=== PATIENT | female | born 1965 | race Caucasian/White ===

== ENCOUNTER → 2020-08-23 10:59 | Outpatient (CLI) | payer OTHER, SELFPAY ==
--- NOTE | 2020-08-23 | DI.MG.S_ITS ---
BILATERAL DIGITAL SCREENING MAMMOGRAM 3D/2D WITH CAD: 08/23/2020 CLINICAL: Routine screening. Family history of breast cancer. Comparison is made to exams dated: 08/11/2019 mammogram, 07/30/2018 mammogram, and 07/26/2017 mammogram - [facility]. There are scattered fibroglandular elements in both breasts. Current study was also evaluated with a Computer Aided Detection (CAD) system. No significant masses, calcifications, or other findings are seen in either breast. There has been no significant interval change. IMPRESSION: NEGATIVE There is no mammographic evidence of malignancy. A 1 year screening mammogram is recommended. This exam was interpreted at Station ID: [id number]. NOTE: For mammograms, a report in lay terms will be sent to the patient. Approximately 15% of breast malignancies will not be visualized mammographically. In the management of a palpable breast mass, a negative mammogram must not discourage biopsy of a clinically suspicious lesion. Electronically Signed By: Augusto camilo/rfancisco:08/23/2020 11:57:38 letter sent: Normal Exam ACR BI-RADS Category 1: Negative 3341F
== END ==
PROVIDERS: PCP Student in an Organized Health Care Education/Training Program; Referring Provider Student in an Organized Health Care Education/Training Program; Visit Provider Student in an Organized Health Care Education/Training Program
DX: Z12.31 Encounter for screening mammogram for malignant neoplasm of breast (principal); Z80.3 Family history of malignant neoplasm of breast
CPT/HCPCS: 77063; 77067

== ENCOUNTER → 2021-08-31 16:22 | Outpatient (CLI) | payer OTHER, SELFPAY ==
--- NOTE | 2021-08-31 | DI.MG.S_ITS ---
BILATERAL DIGITAL SCREENING MAMMOGRAM 3D/2D WITH CAD: 08/31/2021 CLINICAL: Routine screening. Family history of breast cancer. Comparison is made to exams dated: 08/11/2019 mammogram, 07/30/2018 mammogram - [facility], and 08/23/2020 mammogram - [facility]. There are scattered fibroglandular elements in both breasts. Current study was also evaluated with a Computer Aided Detection (CAD) system. No significant masses, calcifications, or other findings are seen in either breast. There has been no significant interval change. IMPRESSION: NEGATIVE There is no mammographic evidence of malignancy. A 1 year screening mammogram is recommended. This exam was interpreted at Station ID: [id number]. NOTE: For mammograms, a report in lay terms will be sent to the patient. Approximately 15% of breast malignancies will not be visualized mammographically. In the management of a palpable breast mass, a negative mammogram must not discourage biopsy of a clinically suspicious lesion. Electronically Signed By: Augusto camilo/francisco:09/01/2021 10:09:05 letter sent: Normal Exam ACR BI-RADS Category 1: Negative 3341F
== END ==
PROVIDERS: PCP Student in an Organized Health Care Education/Training Program; Referring Provider Student in an Organized Health Care Education/Training Program; Visit Provider Student in an Organized Health Care Education/Training Program
DX: Z12.31 Encounter for screening mammogram for malignant neoplasm of breast (principal); Z80.3 Family history of malignant neoplasm of breast
CPT/HCPCS: 77063; 77067

== ENCOUNTER → 2022-06-25 10:29 | Outpatient (CLI) | payer OTHER, SELFPAY ==
[2022-06-25 12:10] LABS: COVID19 -Nasal RAPID Negative (Negative)
== END ==
PROVIDERS: PCP Student in an Organized Health Care Education/Training Program; Visit Provider Surgery
DX: Z20.822 Contact with and (suspected) exposure to COVID-19 (principal); Z01.812 Encounter for preprocedural laboratory examination
CPT/HCPCS: 87635; C9803

== ENCOUNTER 2022-06-26 10:24 | Day surgery (SDC) | payer OTHER, SELFPAY ==
[2022-06-26 10:56] VITALS: BP 135/89; PULSE 65; RESP 15; TEMP 36.9; O2SAT 97; BMI 37.5
--- NOTE | 2022-06-26 11:19 | PM.HP.1 ---
History of Present Illness History of Present Illness Date Patient Seen: 06/26/22 Time Patient Seen: 11:20 Chief complaint: SDC Narrative: The patient presents for colorectal screening. She had a previous colonoscopy 3 years ago demonstrated multiple polyps. No personal history of colon cancer however her father had colon cancer twice. On further history denies any recent gastrointestinal symptoms. No nausea, vomiting, abdominal pain, loss of appetite, unexplained weight loss, change in bowel habits, diarrhea, constipation, melena, hematochezia, or bright red blood per rectum. Patient History Medical History Neck nodule Surgical History H/O tubal ligation Meds Home Medications and Allergies Home Medications Medication Instructions Recorded Confirmed Type peg 3350-electrolytes 236 240 ml PO Q10M #4,000 mL 06/13/22 Rx gram-22.74 gram-6.74 gram-5.86 gram solution (Golytely) Vitamin C See Rx Instructions .Route .COMPLEX 06/26/22 06/26/22 History Vitamin D3 See Rx Instructions .Route .COMPLEX 06/26/22 06/26/22 History multivitamin See Rx Instructions .Route 06/26/22 06/26/22 History .COMPLEX health Allergies Allergy/AdvReac Type Severity Reaction Status Date / Time acetaminophen [From Vicodin] Allergy Hives Verified 06/26/22 10:34 hydrocodone [From Vicodin] Allergy Hives Verified 06/26/22 10:34 Exam Narrative Exam Narrative: General adult woman alert oriented no acute distress Chest nonlabored respiration Extremities warm well perfused Assessment & Plan Assessment & Plan narrative: The patient requires colorectal screening and colonoscopy is recommended. Technical details were discussed. Risks, benefits, alternatives explained. Risks including but not limited to myocardial infarction, aspiration, bleeding, pain, missed lesion, incomplete examination, need for further radiographic studies, colonic perforation, and need for major abdominal surgery were discussed. All questions were answered to their satisfaction, and they are in agreement with this plan. Time Spent With Patient Critical Care time: I spent a total of [] minutes of critical care time on this patient's care today; this time is exclusive of procedural time.
[2022-06-26] MEDS: ONDANSETRON 4 MG/2 ML INJ IV (11:24)
[2022-06-26] MEDS: LACTATED RINGERS 1,000 ML 200 ML IV (11:27)
[2022-06-26] MEDS: fentaNYL 250 MCG/5 ML INJ 150 MCG IV (11:36)
[2022-06-26] MEDS: MIDAZOLAM 5 MG/5 ML VIAL IV (11:39)
--- NOTE | 2022-06-26 12:04 | PM.OP.COLON ---
Operative Date/Time/Diagnoses Date of procedure: 06/26/22 Time of procedure: 12:04 Pre-op diagnosis: Family history of colon cancer Personal history of colonic polyps Post-op diagnosis: same Procedure & Clinicians Study performed: Colonoscopy Same procedure as scheduled: Yes Indications: Personal history of colonic polyps First-degree family member with colon cancer Surgeon: Homero Melendrez Procedure Notes Procedure in detail: Medications: Conscious sedation using 5mg IV midazolam and 150mcg IV of fentanyl The history and physical was performed/updated and the patient is ASA class is 2. The procedure was discussed in detail with the patient. Potential risks complications including infection, bleeding, missed diagnosis, perforation, need for surgery, and were explained. Their questions were answered and informed consent was obtained. Patient was brought to the procedure room and placed standard monitoring equipment. The patient's vital signs were monitored continuously throughout the entire procedure. Prior to starting time-out was performed. The patient was placed in the left lateral recumbent position. Procedural sedation was administered. Examination began with a thorough inspection of the perianal area there was no evidence of fissures, fistulae, external hemorrhoids or cutaneous malignancy. The colonoscopy scope was then placed into the anal canal and was advanced to the cecum, which was identified by the ileocecal valve, the appendiceal orifice and the confluence of the taenia. The scope was then slowly withdrawn examining colon thoroughly in all directions, irrigating it of any residual stool. FINDINGS 1. No masses or polyps 2. Mild diverticulosis 3. Internal hemorrhoids The patient tolerated the procedure well. They will be discharged once criteria are met. The prep was of good/excellent quality. The withdrawl time was 10 minutes. The sedation time was 30 minutes. Specimen(s): none sent Complications: none Impression: Normal colonoscopy Post-procedure Recommendations: Colonoscopy in 5 years and High fiber diet Disposition: same day surgery
[2022-06-26 12:07] VITALS: BP 121/79; PULSE 65; RESP 20; TEMP 36.3; O2SAT 100
[2022-06-26 12:12] VITALS: BP 116/72; PULSE 53; RESP 17; O2SAT 99
[2022-06-26 12:19] VITALS: BP 125/71; PULSE 54; RESP 15; O2SAT 99
[2022-06-26 12:24] VITALS: BP 125/70; PULSE 58; RESP 15; O2SAT 98
[2022-06-26 12:27] VITALS: BP 124/75; PULSE 55; RESP 17; O2SAT 99
== END 2022-06-26 12:55 | disposition home or self-care (01) ==
PROVIDERS: PCP Student in an Organized Health Care Education/Training Program; Referring Provider Surgery; Visit Provider Surgery
PROC: 0DJD8ZZ Inspection of Lower Intestinal Tract, Via Natural or Artificial Opening Endoscopic (ICD-10-PCS; CPT 45378; principal; 2022-06-26 11:30)
DX: Z12.11 Encounter for screening for malignant neoplasm of colon (principal); Z80.0 Family history of malignant neoplasm of digestive organs; Z86.010 Personal history of colon polyps; K57.30 Diverticulosis of large intestine without perforation or abscess without bleeding; K64.8 Other hemorrhoids
CPT/HCPCS: 45378; 99152; 99153; J2250; J2405; J3010

== ENCOUNTER → 2022-08-28 12:35 | Outpatient (CLI) | payer OTHER, SELFPAY ==
--- NOTE | 2022-08-28 12:38 | DI.RAD.S_ITS ---
PROCEDURE: XR KNEE LT 3V INDICATIONS: Pain in left leg TECHNIQUE: 3 views of the knee were acquired. COMPARISON: None. FINDINGS: Bones: No fractures or dislocations. Mild tricompartmental osteoarthritis is seen with joint space narrowing and subchondral sclerosis. No suspicious bony lesions. Soft tissues: Small suprapatellar joint effusion is noted. No suspicious soft tissue calcifications. IMPRESSION: Mild tricompartmental osteoarthritis and small suprapatellar joint effusion. No fracture or dislocation. Dictated by: Jamie Mendez M.D. on 08/28/2022 at 15:56 Approved by: Jamie Mendez M.D. on 08/28/2022 at 15:57
== END ==
PROVIDERS: PCP Physician Assistant; Referring Provider Physician Assistant; Visit Provider Physician Assistant
DX: M17.12 Unilateral primary osteoarthritis, left knee (principal); M25.462 Effusion, left knee; M79.605 Pain in left leg
CPT/HCPCS: 73562

== ENCOUNTER → 2022-12-01 13:16 | Outpatient (CLI) | payer OTHER, SELFPAY ==
--- NOTE | 2022-12-01 13:30 | DI.MRI.S_ITS ---
PROCEDURE: MR KNEE LT WO CON INDICATIONS: LEFT KNEE PAIN TECHNIQUE: Noncontrast sagittal PD fast spin echo and T2 fast spin echo with fat saturation, sagittal 3-D FLASH with fat saturation; coronal T1 spin echo and PD fast spin echo with fat saturation, and axial PD fast spin echo with fat saturation through the knee. COMPARISON: [facility], CR, XR KNEE LT 3V, 08/28/2022, 12:40. FINDINGS: Image quality: Excellent. Menisci: There is complex tear in the posterior horn of the medial meniscus extending to the inferior articular surface. The free edge of the posterior horn of the medial meniscus is blunted. The lateral meniscus normal morphology and internal signal. The meniscal root ligaments appear intact. Cruciate ligaments: The anterior and posterior cruciate ligaments appear intact. There is mucoid degeneration of ACL which has striated appearance. Medial structures: The medial collateral ligament appears intact. The semimembranosus tendon insertions and meniscocapsular junction appear intact. Visualized portions of the pes anserinus tendons appear normal. No abnormal bursal fluid. Lateral structures: The lateral collateral ligament and the biceps femoris tendon appear intact. The popliteus tendon appears normal. Iliotibial band appears normal. Anterior structures: The quadriceps and patellar tendons appear intact. Patellar alignment is normal. No femoral trochlear dysplasia or ventral trochlear prominence. There is increased T2 signal consistent with edema in the suprapatellar fat pad. Bones and cartilage: No bone marrow contusions or fractures. Mild tricompartmental cartilage thinning and fibrillation, most pronounced in the medial facet of patella with near denuded articular surface. Joint space: There is small knee joint effusion. There is a tiny Bryan's cyst. Normal appearing synovial plicae are incidentally noted. IMPRESSION: 1. Complex tear of the posterior horn of the medial meniscus. 2. Mucoid degeneration of ACL. 3. Tricompartmental cartilage thinning and fibrillation. 4. Edema in the suprapatellar fat pad suggesting fat pad impingement. 5 Small knee joint effusion. 6. Tiny bakers cyst. Dictated by: Erich Khan M.D. on 12/03/2022 at 8:36 Approved by: Erich Khan M.D. on 12/03/2022 at 8:50
== END ==
PROVIDERS: PCP Physician Assistant; Referring Provider Orthopaedic Surgery; Visit Provider Orthopaedic Surgery
DX: M25.562 Pain in left knee (principal); M25.462 Effusion, left knee; S83.232A Complex tear of medial meniscus, current injury, left knee, initial encounter
CPT/HCPCS: 73721

== ENCOUNTER → 2024-03-18 08:29 | Outpatient (CLI) | payer OTHER, SELFPAY ==
--- NOTE | 2024-03-18 08:30 | DI.MG.S_ITS ---
BILATERAL DIGITAL SCREENING MAMMOGRAM 3D/2D WITH CAD: 03/18/2024 CLINICAL: Routine screening. Family history of breast cancer. Comparison is made to exams dated: 08/31/2021 mammogram, 08/23/2020 mammogram - [facility], and 08/11/2019 mammogram - [facility]. There are scattered areas of fibroglandular density in both breasts (category b / 25%-50% glandular tissue). Current study was also evaluated with a Computer Aided Detection (CAD) system. No significant masses, calcifications, or other findings are seen in either breast. There has been no significant interval change. IMPRESSION: NEGATIVE There is no mammographic evidence of malignancy. A 1 year screening mammogram is recommended. Based on the Tyrer Cuzick model (a risk assessment model) the patient's lifetime risk is 11.2% and her 10 year risk is 4.2%. According to the ACR, ACS, and NCCN guidelines, an annual breast MRI exam along with mammogram is recommended if the patient's lifetime risk is 20% or greater. This exam was interpreted at Station ID: [id number]. NOTE: For mammograms, a report in lay terms will be sent to the patient. Approximately 15% of breast malignancies will not be visualized mammographically. In the management of a palpable breast mass, a negative mammogram must not discourage biopsy of a clinically suspicious lesion. Electronically Signed By: Debbie velasquez/francisco:03/18/2024 11:43:51 letter sent: Normal Exam ACR BI-RADS Category 1: Negative 3341F
== END ==
LOC: MAMMO 08:30
PROVIDERS: PCP Physician Assistant; Referring Provider Physician Assistant; Visit Provider Physician Assistant
DX: Z12.31 Encounter for screening mammogram for malignant neoplasm of breast (principal); Z80.3 Family history of malignant neoplasm of breast; R92.323 Mammographic fibroglandular density, bilateral breasts
CPT/HCPCS: 77063; 77067

== ENCOUNTER → 2024-08-18 06:45 | Outpatient (CLI) | payer OTHER, SELFPAY ==
--- NOTE | 2024-08-18 06:47 | DI.US.S_ITS ---
PROCEDURE: US ABDOMEN LIMITED INDICATIONS: POSTPRANDIAL EMESIS / ABDOMINAL WALL LUMP TECHNIQUE: Real-time scanning was performed of the abdominal and retroperitoneal organs, with image documentation. COMPARISON: None. FINDINGS: Liver: Mild hepatomegaly the liver measures approximately 18.1 cm in CC dimension of the right lobe. Mild diffuse increased echogenicity of the liver commonly hepatic steatosis or other intrinsic hepatic disease. In the area of interest in the anterior abdominal wall with reported lump, there is no fluid collection, no ultrasound evidence of mass. Gallbladder: Gallbladder is nondistended. No ultrasound evidence of gallstones. No gallbladder wall thickening or pericholecystic fluid. Biliary ducts: Intrahepatic bile ducts are non-dilated. Extrahepatic bile duct caliber measures 5 mm. Normal is 6-7 mm or less in diameter. Pancreas: Visualized portions of the pancreas are sonographically normal. IMPRESSION: Mild hepatomegaly. Mild hepatic steatosis or other intrinsic hepatic disease. In the area of interest in the anterior abdominal wall with reported lump, there is no fluid collection, no ultrasound evidence of mass. Dictated by: Felice Dang M.D. on 08/18/2024 at 8:47 Approved by: Felice Dang M.D. on 08/18/2024 at 9:08
== END ==
PROVIDERS: PCP Nurse Practitioner Family; Referring Provider Nurse Practitioner Family; Visit Provider Nurse Practitioner Family
DX: R11.11 Vomiting without nausea (principal); R22.2 Localized swelling, mass and lump, trunk; R16.0 Hepatomegaly, not elsewhere classified
CPT/HCPCS: 76705

== ENCOUNTER → 2025-04-10 11:10 | Outpatient (CLI) | payer OTHER, SELFPAY ==
--- NOTE | 2025-04-10 11:12 | DI.MG.S_ITS ---
MM screening mammo BI: 04/10/2025. BI-RADS: 1 CLINICAL: 59-year old female for bilateral screening mammogram. Tyrer-Cuzick lifetime risk of 10.8%. Current reported family history of breast cancer: mother. PRIOR EXAMS 03/18/2024, 08/31/2021, 08/23/2020. MAMMOGRAPHY TECHNIQUE: 2D and 3D (tomosynthesis) digital mammographic views obtained, with additional images as needed for full coverage. Current study was also evaluated with a Computer Aided Detection (CAD) system. DENSITY B. There are scattered areas of fibroglandular density. MAMMOGRAPHY FINDINGS Bilateral: No suspicious mass, asymmetry, microcalcification, or other abnormality seen. IMPRESSION: * No evidence of malignancy. RECOMMENDATIONS Bilateral * Annual screening mammography. OVERALL ASSESSMENT CATEGORY BI-RADS-1: Negative. The [employer] recommends annual screening mammography beginning at age 40 for women with average risk of breast cancer. ELECTRONICALLY SIGNED: Amauri Pérez M.D. on 04/10/2025 at 09:46:28 PM PT Interpreting Station ID: [id number]
== END ==
PROVIDERS: PCP Nurse Practitioner Family; Referring Provider Nurse Practitioner Family; Visit Provider Nurse Practitioner Family
DX: Z12.31 Encounter for screening mammogram for malignant neoplasm of breast (principal); Z80.3 Family history of malignant neoplasm of breast
CPT/HCPCS: 77063; 77067

== ENCOUNTER → 2025-05-20 07:02 | Outpatient (CLI) | payer OTHER, SELFPAY ==
--- NOTE | 2025-05-20 07:03 | DI.US.S_ITS ---
PROCEDURE: US HERNIA INDICATIONS: RIGHT INGUINAL LUMP TECHNIQUE: Real-time focused scanning was performed of the inguinal region, with image documentation. COMPARISON: None. FINDINGS: There is a small, smoothly marginated, simple appearing fluid collection in the right inguinal region corresponding to the palpable abnormality. This measures about 5.1 x 4.7 cm. This tapers to a neck, probably representing inguinal ring with diameter of 1.1 cm. There is adjacent herniated fat. Non reducible with compression. IMPRESSION: Fat and fluid containing right inguinal hernia corresponding to the palpable inguinal abnormality. For further anatomic detail, CT of the pelvis could be considered. Dictated by: Shelia Moses M.D. on 05/20/2025 at 15:54 Approved by: Shelia Moses M.D. on 05/20/2025 at 15:58
== END ==
PROVIDERS: PCP Nurse Practitioner Family; Referring Provider Nurse Practitioner Family; Visit Provider Nurse Practitioner Family
DX: K40.90 Unilateral inguinal hernia, without obstruction or gangrene, not specified as recurrent (principal); R19.09 Other intra-abdominal and pelvic swelling, mass and lump
CPT/HCPCS: 76705

== ENCOUNTER → 2025-05-26 06:31 | Outpatient (CLI) | payer OTHER, SELFPAY ==
--- NOTE | 2025-05-26 06:34 | DI.CT.S_ITS ---
PROCEDURE: CT PELVIS W CON INDICATIONS: RIGHT INGUINAL HERNIA TECHNIQUE: After the administration of intravenous contrast, 5 mm thick sections acquired from the iliac crests to the symphysis. 5 mm coronal and sagittal reformats were acquired. For radiation dose reduction, the following was used: automated exposure control, adjustment of mA and/or kV according to patient size. COMPARISON: [facility], , HERNIA, 05/20/2025, 7:18. FINDINGS: Image quality: Diagnostic. PELVIS: Peritoneum and Bowel: Bowel loops demonstrate normal wall thickness and caliber. Normal appendix. Diverticulosis. No free fluid or air. Pelvic Organs: Retroverted uterus. Uterine fibroids. Bladder: Normal wall thickness, accounting for underdistension. No perivesicular fat stranding. No stone. Pelvic Nodes: No enlarged lymph nodes. Miscellaneous: -Fluid collection at the right groin measuring 4.2 x 2.8 x 1.9 cm, estimated volume of 12 cc. This could be within a right femoral hernia. -No definite inguinal hernia. Bones: No aggressive osseous abnormality. IMPRESSION: 1. Small fluid collection at the right groin measuring 4.2 cm and approximately 12 cc. Suspected to be within a small right femoral hernia sac. 2. No adenopathy. 3. Uterine fibroids. Dictated by: Amauri Pérez M.D. on 05/26/2025 at 9:20 Approved by: Amauri Pérez M.D. on 05/26/2025 at 9:28
== END ==
LOC: CT 06:32
PROVIDERS: PCP Nurse Practitioner Family; Referring Provider Nurse Practitioner Family; Visit Provider Nurse Practitioner Family
DX: K40.30 Unilateral inguinal hernia, with obstruction, without gangrene, not specified as recurrent (principal); K57.90 Diverticulosis of intestine, part unspecified, without perforation or abscess without bleeding; D25.9 Leiomyoma of uterus, unspecified
CPT/HCPCS: 72193; Q9967

== ENCOUNTER 2025-09-29 07:26 | Day surgery (SDC) | payer OTHER, SELFPAY ==
[2025-09-14 13:39] VITALS: BMI 34.9
[2025-09-29] VITALS (8 sets, daily range): BP systolic 115–132; BP diastolic 71–80; PULSE 49–68; RESP 12–21; TEMP 35.9–36.6; O2SAT 94–97
[2025-09-29] MEDS: LACTATED RINGERS 1,000 ML 42 ML IV ×2 (08:08→10:20)
--- NOTE | 2025-09-29 08:20 | P.HP_ITS ---
History of Present Illness
--- NOTE | 2025-09-29 08:20 | PM.HP.IH.1 ---
History of Present Illness History of Present Illness Date Patient Seen: 09/29/25 Time Patient Seen: 08:20 Chief complaint: SDC Narrative: Naina is a 60-year-old woman with right groin hernia. See the prior office notes for details. [facility] Medical History (Updated 09/14/25 @ 13:50 by Avis Kelly RN) Subclinical hypothyroidism HLD (hyperlipidemia) History of COVID-19 (04/10/22) Neck nodule Surgical History (Updated 09/14/25 @ 13:50 by Avis Kelly RN) Hx of colonoscopy (06/26/22) H/O tubal ligation Social History (Updated 06/04/25 @ 09:54 by Ovidio Manley MA) marital status: household members: spouse occupational status: previously employed Smoking Status: Never smoker Meds Home Medications and Allergies Home Medications ?Medication ?Instructions ?Recorded ?Confirmed ?Type Vitamin C See Rx Instructions .Route .COMPLEX 06/26/22 09/29/25 History Vitamin D3 See Rx Instructions .Route .COMPLEX 06/26/22 09/29/25 History multivitamin See Rx Instructions .Route 06/26/22 09/29/25 History .COMPLEX health tirzepatide (weight loss) 2.5 2.5 mg SUBCUT QWEEK 06/04/25 09/29/25 History mg/0.5 mL subcutaneous pen injector (Zepbound) valacyclovir 500 mg tablet 500 mg PO BID 09/29/25 09/29/25 History Allergies Allergy/AdvReac Type Severity Reaction Status Date / Time hydrocodone (From Vicodin) Allergy Hives Verified 08/27/25 13:00 ivermectin Allergy Rash Verified 09/14/25 13:51 stevioside (From Stevia) Allergy Rash Verified 09/14/25 13:51 Exam Vital Signs (past 8 hours): - 09/29/25 07:52 Temperature 97.8 F Pulse Rate 68 Respiratory Rate 16 Blood Pressure 121/78 Pulse Oximetry 97 Oxygen Delivery Method Room Air Oxygen Delivery Method Room Air Const General: healthy appearing and No acute distress Assessment & Plan Assessment and plan (1) Right groin hernia: Status: Acute Plan Robotic right, possible left groin hernia repair with mesh. Time-Based Coding :: [TOTAL MINUTES] spent with patient and on the chart (including review of chart, obtaining history, exam, reviewing outside data, placing orders, documenting exam and treatment plan, and counseling patient) on [DATE]. [employer] Document charge(s): No
--- NOTE | 2025-09-29 08:59 | SUR.OPER ---
Supine on padded OR bed, head on pillow, arms padded and tucked at sides, purple strap across shoulders, legs uncrossed, safety belt at thigh, tape over blanket over lower legs .
[2025-09-29] MEDS: hydrOXYzine 50 MG/ML INJ 25 MG IM (10:45)
[2025-09-29] MEDS: ONDANSETRON 4 MG/2 ML INJ IV (10:56)
[2025-09-29] MEDS: KETOROLAC 30 MG/ML VIAL IV (11:00)
--- NOTE | 2025-09-29 11:09 | P.OP_ITS ---
Operative Date/Time/Diagnoses
--- NOTE | 2025-09-29 11:09 | PM.OP.1 ---
Operative Date/Time/Diagnoses Date of procedure: 09/29/25 Time of procedure: 11:09 Pre-op diagnosis: Right inguinal hernia Post-op diagnosis: same Procedure & Clinicians Procedure: Robotic right inguinal hernia repair with mesh Same procedure(s) as scheduled: Yes Surgeon: Fady Franklin Assisted?: Yes Mold Repairer: Roverto Holley Anesthesia Type: General Operative Notes Findings: Direct hernia defect with incarcerated fat Applied: none Estimated Blood Loss (mL): 5 Procedure in detail: The patient was given preoperative antibiotics. The patient was brought to the operating room, placed on the table in the supine position with the arms tucked and general anesthesia was induced. The abdomen was prepped and draped in the usual fashion. A time-out was performed. A 1 cm transverse incision was created superior to the umbilicus and dissection was carried down to the fascia. The fascia was grasped with a Ashley clamp to elevate the abdominal wall. The fascia was scored transversely with cautery. A Peon clamp was used to kumari the peritoneum. The 12 mm robotic port was placed and the abdomen was insufflated to 15 mmHg. The camera was inserted, there was no evidence of any injury from the entry. There was a direct inguinal hernia with incarcerated fat. 8 mm ports were placed under direct vision in the mid left and mid right abdomen. The patient was positioned in Trendelenburg. The robot was docked. We created right peritoneal flap. The peritoneum was dissected off of the right myopectineal orifice on right round ligament and the Bobby's ligament was exposed. There was fat incarcerated within the direct defect. The fat was reduced with combination of dissection and traction. An extra-large right Bard mesh was brought in and placed over the defect with the medial edge overlapping the pubic symphysis. We then closed the peritoneal flap with a running 3-0 barbed suture. We took one last look around the abdomen and saw no other abnormalities. The suture was removed and accounted for. The robot was undocked. The 8 mm ports were removed under direct vision. The abdomen was desufflated. The 12 mm port was removed. Additional local was injected into the fascia and the fascial incision was closed with 2 interrupted 0 Vicryl sutures. The skin incisions were closed with 4 Monocryl, Steri-Strips and Band-Aids. Roverto JANG provided assistance with exposure, retraction and closure of incisions. Complications: none Post-operative Condition: stable Disposition: PACU
[2025-09-29] MEDS: BENZOCAINE/MENTHOL 1 LOZ PKT 1 EACH PO (11:22)
== END 2025-09-29 12:03 | disposition home or self-care (01) ==
PROVIDERS: PCP Nurse Practitioner Family; Referring Provider Surgery; Visit Provider Surgery
PROC: 0YQ54ZZ Repair Right Inguinal Region, Percutaneous Endoscopic Approach (ICD-10-PCS; CPT 49650; principal; 2025-09-29 08:45)
DX: K40.90 Unilateral inguinal hernia, without obstruction or gangrene, not specified as recurrent (principal)
CPT/HCPCS: 49650; S2900; C1781; J0330; J0689; J1100; J1171; J1885; J2405; J2704; J3010; J3410; J3490; J7120